=== PATIENT | male | born 1985 | race Caucasian/White ===

== ENCOUNTER 2018-04-18 00:49 | Emergency (ER) | payer SELFPAY ==
[2018-04-18] MEDS ORDERED: NORMAL SALINE 1000 ML 1,000 ML IV ONE (01:05)
[2018-04-18] MEDS ORDERED: HYDROMORPHONE HCL INJ/PF 2 MG/ML AMPULE IV ONE ×4 (01:05→04:03)
[2018-04-18] MEDS ORDERED: ONDANSETRON HCL INJ/PF 4 MG/2 ML SDV IV ONE (01:10)
[2018-04-18] MEDS ORDERED: SILVER SULFADIAZINE 1% CREAM 400 GM TP ONE (01:30)
[2018-04-18 01:54] LABS: ALANINE AMINOTRANSFERASE 48 U/L (21-72); ALBUMIN 5.2 g/dL (3.5-5.0); ALKALINE PHOSPHATASE 76 U/L (38-126); ANION GAP 13 (5-19); ASPARTATE AMINO TRANSFERASE 38 U/L (17-59); BILIRUBIN,DIRECT 0.3 mg/dL (0.0-0.4); BILIRUBIN,TOTAL 0.6 mg/dL (0.2-1.3); BLOOD UREA NITROGEN 10 mg/dL (7-20); CALCIUM 9.1 mg/dL (8.4-10.2); CARBON DIOXIDE 23 mmol/L (22-30); CHLORIDE 110 mmol/L (98-107); GLUCOSE 129 mg/dL (75-110); POTASSIUM 4.6 mmol/L (3.6-5.0); SODIUM 146.3 mmol/L (137-145); TOTAL PROTEIN 8.3 g/dL (6.3-8.2)
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
[2018-04-18] MEDS ORDERED: DIPH/PERTUSS(ACELL)/TETANUS VAC/PF 0.5 ML SYR (>=10YO) IM ONE (04:06)
[2018-04-18 04:34] VITALS: BP 164/103
== END 2018-04-18 04:40 | disposition home or self-care (01) ==
LOC: ER 00:49
DX: T23.252A Burn of second degree of left palm, initial encounter (principal); T23.222A Burn of second degree of single left finger (nail) except thumb, initial encounter; X08.8XXA Exposure to other specified smoke, fire and flames, initial encounter; F17.200 Nicotine dependence, unspecified, uncomplicated
CPT/HCPCS: 96376; 99283; 96361; 90471; 96374; 96375; 36415; 80053; 90715; J1170; J3490; J2405; J7030

== ENCOUNTER 2018-04-19 14:00 | Emergency (ER) | payer SELFPAY ==
[2018-04-19 14:07] VITALS: BP 160/110
--- NOTE | 2018-04-19 14:24 | ER Document Report ---
ED Medical Screen (RME) - General Chief Complaint: Burn Recheck Stated Complaint: BURN TO HAND Time Seen by Provider: 04/19/18 14:21 Mode of Arrival: Ambulatory Information source: Patient - HPI Patient complains to provider of: burn recheck Onset: Yesterday - pt with burn to L hand seen here 2 days ago. States he opened side of burn yesterday and clear yellow fluid drained. - Related Data Allergies/Adverse Reactions: acetaminophen Adverse Reaction (Verified 04/18/18 00:51) Past Medical History Renal/ Medical History: Denies: Hx Peritoneal Dialysis Physical Exam - Vital signs Vitals: Temp Pulse Resp BP Pulse Ox 98.4 F 74 16 154/98 H 99 04/19/18 14:05 04/19/18 14:05 04/19/18 14:05 04/19/18 14:05 04/19/18 14:05 Course - Vital Signs Vital signs: Temp Pulse Resp BP Pulse Ox 98.4 F 74 16 160/110 H 99 04/19/18 14:05 04/19/18 14:05 04/19/18 14:05 04/19/18 14:06 04/19/18 14:05
[2018-04-19 14:48] LABS: ABSOLUTE EOSINOPHILS # (AUTO) 0.1 10^3/uL (0.0-0.6); ABSOLUTE MONOCYTES (AUTO) 0.8 10^3/uL (0.1-1.4); ABSOLUTE NEUT (AUTO) 11.2 10^3/uL (1.7-8.2); BASOPHILS % (AUTO) 0.3 % (0-2); EOSINOPHILS % (AUTO) 0.5 % (0-6); HEMATOCRIT 47.5 % (37.9-51.0); HEMOGLOBIN 16.5 g/dL (13.5-17.0); LYMPHOCYTES % (AUTO) 19.6 % (13-45); MEAN CORPUSCULAR HEMOGLOBIN 32.4 pg (27.0-33.4); MEAN CORPUSCULAR HGB CONC 34.8 g/dL (32.0-36.0); MEAN CORPUSCULAR VOLUME 93 fl (80-97); MONOCYTES % (AUTO) 5.4 % (3-13); PLATELET COUNT 322 10^3/uL (150-450); RED BLOOD COUNT 5.11 10^6/uL (4.35-5.55); RED CELL DISTRIBUTION WIDTH 13.6 % (11.5-14.0); SEGMENTED NEUTROPHILS % (AUTO) 74.2 % (42-78); TOTAL CELLS COUNTED % (AUTO) 100 %; WHITE BLOOD COUNT 15.1 10^3/uL (4.0-10.5)
[2018-04-19 15:00] LABS: ALANINE AMINOTRANSFERASE 44 U/L (21-72); ALBUMIN 4.9 g/dL (3.5-5.0); ALKALINE PHOSPHATASE 75 U/L (38-126); ANION GAP 10 (5-19); ASPARTATE AMINO TRANSFERASE 27 U/L (17-59); BILIRUBIN,DIRECT 0.1 mg/dL (0.0-0.4); BILIRUBIN,TOTAL 2.2 mg/dL (0.2-1.3); BLOOD UREA NITROGEN 7 mg/dL (7-20); CALCIUM 9.5 mg/dL (8.4-10.2); CARBON DIOXIDE 28 mmol/L (22-30); CHLORIDE 100 mmol/L (98-107); GLUCOSE 90 mg/dL (75-110); POTASSIUM 4.4 mmol/L (3.6-5.0); SODIUM 138.4 mmol/L (137-145)
== END 2018-04-19 16:00 | disposition left against medical advice (07) ==
LOC: ER 14:00
DX: T23.002D Burn of unspecified degree of left hand, unspecified site, subsequent encounter (principal); X58.XXXD Exposure to other specified factors, subsequent encounter
CPT/HCPCS: 36415; 80053; 85025; 99281

== ENCOUNTER 2018-04-22 09:48 | Emergency (ER) | payer SELFPAY ==
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
[2018-04-22] MEDS ORDERED: MORPHINE SULFATE 10 MG/ML INJ IM ONE (12:35)
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
[2018-04-22] MEDS ORDERED: SILVER SULFADIAZINE 1% CREAM 25 GM TP ONE (12:49)
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
[2018-04-22 14:53] VITALS: BP 176/109
== END 2018-04-22 14:53 | disposition home or self-care (01) ==
LOC: ER 09:48
DX: T23.252A Burn of second degree of left palm, initial encounter (principal); T23.242A Burn of second degree of multiple left fingers (nail), including thumb, initial encounter; T21.22XA Burn of second degree of abdominal wall, initial encounter; X08.8XXA Exposure to other specified smoke, fire and flames, initial encounter; T49.0X6A Underdosing of local antifungal, anti-infective and anti-inflammatory drugs, initial encounter; Z91.128 Patient's intentional underdosing of medication regimen for other reason; Z91.14 Patient's other noncompliance with medication regimen
CPT/HCPCS: 99284; 96372; 16020; J2270

== ENCOUNTER 2020-03-22 12:01 | Emergency (ER) | payer OTHER ==
[2020-03-22] MEDS ORDERED: LIDOCAINE 1% INJ-PF (10 MG/ML) 30 ML SDV INJ ONE ×2 (12:44→13:39)
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
[2020-03-22 15:20] VITALS: BP 160/92
== END 2020-03-22 15:21 | disposition home or self-care (01) ==
LOC: ER 12:01
DX: S61.411A Laceration without foreign body of right hand, initial encounter (principal); M79.601 Pain in right arm; V89.2XXA Person injured in unspecified motor-vehicle accident, traffic, initial encounter; F17.200 Nicotine dependence, unspecified, uncomplicated
CPT/HCPCS: 99284; 73130; 12001; J3490